=== PATIENT | female | born 1955 | race Caucasian/White ===

== ENCOUNTER 2017-08-28 21:21 | Emergency (ER) | payer MEDICAID, OTHER ==
[~2017-08-28 21:21] MED LIST: B COTAB3 PO; CITA20 PO; CLON.5 PO; DICL1GEL; HYDR-3129 PO; LEVO.025 PO; MELO15TA2 PO; METH2.5 OR
[2017-08-28 22:08] VITALS: BP 179/80; PULSE 57; RESP 16; TEMP 98.1; TEMP 98.5; O2SAT 96
--- NOTE | 2017-08-28 23:22 | PD ---
HPI Chief Complaint: Skin Problem Time Seen by Provider: 23:21 Travel History International Travel<30 days: No Contact w/Intl Traveler<30days: No Traveled to known affect area: No History of Present Illness HPI 62-year-old female came to the emergency room with history of rash underneath her breast and xiphoid area since yesterday. Patient says she is extremely uncomfortable and it martinez. To her it seems like shingles. She has not been feeling too good but no fever. Vital signs were stable in the emergency room triage. Pain is constantly there with no aggravating or relieving factors. She has never had shingles in the past. Patient has history of rheumatoid arthritis and has not taken her methotrexate in past couple months. She is not on any immunosuppressants. Patient says last night the rash was very wet. [facility] Past Medical History Narrative Medical List of her past medical, surgical, social and family history is reviewed from the nursing note. Arthritis: Yes (RA) Anxiety: Yes Heart Rhythm Problems: No Cancer: No Cardiac Catheterization: No Cardiovascular Problems: No High Cholesterol: Yes Congestive Heart Failure: No Diabetes: No Diminished Hearing: No Endocrine: No Genitourinary: No Hepatitis: No Hiatal Hernia: No Hypertension: No Immune Disorder: No Musculoskeletal: Yes (RA) Neurologic: Yes (NEUROPATHY BILAT FEET AND LEGS,BACK PAIN) Psychiatric: Yes (ANXIETY ATTACKS) Reproductive: No Respiratory: No Immunizations Current: Yes Myocardial Infarction: No Thyroid Disease: Yes Menopausal: Yes : 2 Para: 2 Tubal Ligation: Yes (AGE 20) Past Surgical History Abdominal Surgery: Yes (TUBAL LIGATION) AICD: No Cardiac Surgery: No Coronary Artery Bypass Graft: No Ear Surgery: No Endocrine Surgery: No Eye Surgery: Yes (RIGHT CATARACT SX & LENS IMPLANT) Genitourinary Surgery: No Gynecologic Surgery: No Joint Replacement: No Oral Surgery: No Pacemaker: No Thoracic Surgery: No Other Surgery: Yes Social History Alcohol Use: No Tobacco Use: No Substance Use: No Allergies-Medications (Allergen,Severity, Reaction): Coded Allergies: cortisone (Unverified Allergy, Severe, PASSED OUT, 08/28/17) meperidine (Unverified Allergy, Severe, Nausea/Vomiting, 08/28/17) Uncoded Allergies: PLASTIC (Allergy, Severe, 10/23/11) Comments List of her allergies reviewed from the nursing note. Reported Meds & Prescriptions Reported Meds & Active Scripts Active Neurontin (Gabapentin) 300 Mg Cap 300 Mg PO BID 5 Days Acyclovir 800 Mg Tab 800 Mg PO 5 TIMES A DAY 5 Days Rheumatrex (Methotrexate) 2.5 Mg Tab 10 Mg OR WEEKLY Celexa 20 Mg Tab (Citalopram Hydrobromide) 20 Mg Tab 20 Mg PO BID Reported [place] 10-325 mg (Hydrocodone-Acetaminophen 10-325 mg) 1 Tab Tab 1 Tab PO Q4H PRN Voltaren 1% Gel (Diclofenac Sodium (Topical)) 1 % Gel Mobic (Meloxicam) 15 Mg Tab 15 Mg PO DAILY Levothyroxine Sodium 25 Mcg Tab 25 Mcg PO DAILY Klonopin (Clonazepam) 0.5 Mg Tab 0.5 Mg PO DAILY B Complex (Vitamin B Complex) Tab 1 Cap PO DAILY Narrative Medication List of her home medications reviewed from the nursing note Review of Systems Except as stated in HPI: all other systems reviewed are Neg Skin: Positive Rash Physical Exam Narrative GENERAL: Awake, alert, moderate distress SKIN: Focused skin assessment warm/dry. Erythematous papulovesicular rash on bilateral inframammary fold and in the subxiphoid area. This appears to be dry currently. HEAD: Atraumatic. Normocephalic. EYES: Pupils equal and round. No scleral icterus. No injection or drainage. ENT: No nasal bleeding or discharge. Mucous membranes pink and moist. NECK: Trachea midline. No JVD. CARDIOVASCULAR: Regular rate and rhythm. No murmur appreciated. RESPIRATORY: No accessory muscle use. Clear to auscultation. Breath sounds equal bilaterally. GASTROINTESTINAL: Abdomen soft, non-tender, nondistended. Hepatic and splenic margins not palpable. MUSCULOSKELETAL: No obvious deformities. No clubbing. No cyanosis. No edema. NEUROLOGICAL: Awake and alert. No obvious cranial nerve deficits. Motor grossly within normal limits. Normal speech. PSYCHIATRIC: Appropriate mood and affect; insight and judgment normal. Data Data Last Documented VS Vital Signs Date Time Temp Pulse Resp B/P (MAP) Pulse Ox O2 Delivery O2 Flow Rate FiO2 08/28/17 22:08 98.1 57 16 179/80 (113) 96 Orders Orders Acyclovir (Zovirax) (08/28/17 23:45) Gabapentin (Neurontin) (08/28/17 23:45) Ed Discharge Order (08/28/17 23:41) [facility] Medical Decision Making Medical Screen Exam Complete: Yes Emergency Medical Condition: Yes Medical Record Reviewed: Yes Differential Diagnosis Shingles versus yeast infection Narrative Course 11:46 PM in spite of the fact that the rash appears to be crossing the midline time comfortable treating her with acyclovir because the appearance on the characteristic pain is like shingles. She is getting acyclovir here and gabapentin. Patient will be discharged home on prescriptions after that. I have given her verbal as well as written discharge instructions. Procedures EKG Prior to Arrival: No Diagnosis Primary Impression: Shingles Qualified Codes: B02.9 - Zoster without complications Additional Impression: Skin yeast infection Referrals: Primary Care Physician 3 days Additional Instructions: Please return to the ER if condition worsens or any other new concerns like fever etc. Otherwise follow-up with your primary care in next 2-3 days. Take the medication as per the prescription direction. Med/Other Pt SpecificInfo: Prescription(s) given Scripts Gabapentin (Neurontin) 300 Mg Cap 300 MG PO BID for 5 Days, #10 CAP 0 Refills Prov: Rian Ocampo MD 08/28/17 Acyclovir (Acyclovir) 800 Mg Tab 800 MG PO 5 TIMES A DAY for Mgmt Viral Infection for 5 Days, TAB 0 Refills Prov: Rian Ocampo MD 08/28/17 Disposition: 01 DISCHARGE HOME Condition: Stable Rian Ocampo MD Aug 28, 2017 23:22
[2017-08-28] MEDS ORDERED: NEUR300C PO (23:40)
[2017-08-28] MEDS ORDERED: ACYC800T PO (23:40)
[2017-08-28] MEDS ORDERED: GABAPENTIN 300 MG CAP PO ONE (23:45)
[2017-08-28] MEDS ORDERED: ACYCLOVIR 800 MG TAB PO ONE (23:45)
== END 2017-08-29 00:04 | disposition home or self-care (01) ==
LOC: NEPD 21:21
DX: B02.9 Zoster without complications (principal); B37.2 Candidiasis of skin and nail
CPT/HCPCS: 99283